=== PATIENT | female | born 1980 | race Caucasian/White ===

== ENCOUNTER 2017-10-31 21:42 | Emergency (ER) | payer MEDICAID ==
[~2017-10-31] VITALS: Ht 162.6 cm; Wt 61.3 kg
[2017-10-31 23:13] VITALS: BP 126/70
== END 2017-10-31 23:13 | disposition home or self-care (01) ==
LOC: ED 21:42
DX: H60.92 Unspecified otitis externa, left ear (principal)
CPT/HCPCS: Q0162